=== PATIENT | male | born 1965 | race Caucasian/White ===

== ENCOUNTER 2016-09-20 08:25 | Day surgery (SDC) | payer OTHER ==
[2016-09-17 10:07] VITALS: BMI 26.6
[~2016-09-20 08:25] MED LIST: LACTATED RINGERS 1,000 ML IV SCH
[2016-09-20 08:39] VITALS: RESP 16; TEMP 98.7
[2016-09-20] MEDS ORDERED: LIDOCAINE 1% 20 ML VIAL (10MG/ML) FOR IV START INTRADERMA ONE (08:42)
[2016-09-20] MEDS ORDERED: BUPIVACAINE (PF) 0.5% 30 ML VIAL ONE (09:22)
[2016-09-20] MEDS ORDERED: MIDAZOLAM 2 MG/2 ML VIAL ONE (09:22)
[2016-09-20] MEDS ORDERED: TRIAMCINOLONE ACETONIDE 40 MG/ML 1 ML VIAL ONE (09:22)
[2016-09-20] MEDS ORDERED: fentaNYL (PF) 50 MCG/ML 2 ML AMP ONE (09:22)
--- NOTE | 2016-09-20 09:55 | P.PCN ---
Date of Procedure: 09/20/16 Anesthesia: MAC Surgeon: Dmitriy Trivedi Pathology: none sent Condition: stable Disposition: PACU Description of Procedure: PROCEDURE: Ultrasound guided right ilioinguinal nerve block. PREOPERATIVE DIAGNOSIS: Right ilioinguinal neuralgia. POSTOPERATIVE DIAGNOSIS: Right ilioinguinal neuralgia. ANESTHESIA: Local anesthesia + IV sedation. EBL: None. PROCEDURE INDICATION: History of pain in the right groin after inguinal hernia repair secondary to ilioinguinal neuralgia unresponsive to more conservative treatment measures, procedure #3 today. Ultrasound was used to verify needle position and maximize safety. PROCEDURE DESCRIPTION: The patient was seen and identified in the preoperative area. Risks, benefits, complications, and alternatives were discussed with the patient, including but not limited to bleeding, infection, nerve damage, incomplete pain relief, and allergic reactions to medications. The patient agreed to proceed with the procedure and signed the consent. IV was started, and vital signs were stable. Patient was taken to the OR and time out was completed to verify area of pain, . Using ultrasound the different abdominal wall layers, the external oblique, the internal oblique, and the transversus abdominus were identified. Subsquently, a 22-g 2 inch stimuplex needle was advanced under direct ultrasound guidance (in plane) to the layer between the internal oblique and the transversus abdominus which corresponds to the block site of the ilioinguinal nerve. Subsequently, and after negative aspiration of air and blood, 10 mL of a block solution containing Kenalog 80 mg and 8 mL of 0.25% preservative-free bupivacaine, was injected under direct ultrasound guidance. Needle was then removed intact. Skin was cleansed and bandages were applied. There were no complications. DISPOSITION / PLANS: The patient was placed in a supine position and transferred to the recovery area in a stable condition for observation and was discharged from the recovery room after meeting discharge criteria. Home discharge instructions given to the patient by the staff. The patient was reexamined prior to discharge and the patient already had relief, and there were no issues. The patient will schedule a follow up in clinic in approximately 4-6 weeks.
[2016-09-20 10:23] VITALS: BP 111/81; PULSE 82
[2016-09-20] MEDS ORDERED: IV FLUID CONTINUATION 1,000 ML IV ONE (10:25)
== END 2016-09-20 10:31 | disposition home or self-care (01) ==
LOC: ORPAIN 08:25
PROVIDERS: ATTEND Anesthesiology
DX: G89.29 Other chronic pain (principal); G58.8 Other specified mononeuropathies; Z79.82 Long term (current) use of aspirin; Z79.899 Other long term (current) drug therapy; Z88.1 Allergy status to other antibiotic agents
CPT/HCPCS: 64425; J2250; J3301; J3010

== ENCOUNTER → 2016-10-18 | Outpatient (CLI) | payer OTHER ==
[2016-10-18 13:17] LABS: ALT 49 U/L (21-72); AST 35 U/L (17-59); Cholesterol 135 mg/dL (<200); Creatine Kinase 89 U/L (55-170); HDL Cholesterol 41 mg/dL (40-60); Triglycerides 69 mg/dL (<150)
== END ==
LOC: LABWHC1 12:09
PROVIDERS: ATTEND Internal Medicine
DX: J44.9 Chronic obstructive pulmonary disease, unspecified (principal); N40.0 Benign prostatic hyperplasia without lower urinary tract symptoms; E78.5 Hyperlipidemia, unspecified; E55.9 Vitamin D deficiency, unspecified
CPT/HCPCS: 36415; 80061; 82306; 82550; 84450; 84460

== ENCOUNTER → 2016-10-18 | Outpatient (CLI) | payer OTHER ==
[2016-10-18 13:06] VITALS: BP 135/89; PULSE 84; RESP 18
--- NOTE | 2016-10-18 13:35 | P.PN ---
Progress Note - Text Patient returns for followup for chronic groin pain with radiation to right testicle after inguinal hernia surgery many years ago, now has undergone ilioinguinal NB x 3, each with XX days' worth of relief. Patient has had a history of ETOH abuse and now has right upper quadrant pain that he believes is caused by both alcohol and medications including meloxicam. Today, pt denies new-onset weakness, bowel/bladder incontinence, or any other signs or symptoms of cauda equina syndrome. There are no signs of acute intoxication, and no indications of medication diversion or overuse. In addition to above, 13-point review of systems is also negative for chest pain , shortness of breath, changes in vision, changes in hearing, new onset weakness , abdominal pain, diarrhea, extreme fatigue, malaise, fever, skin changes, homicidal or suicidal ideation, or bowel or bladder incontinence. Vital Signs: Reviewed in EMR Gen: WDWN, AAOx3, NAD HEENT: NCAT, EOMI, hearing grossly normal Pulm: resp unlabored Abd: soft, NT, ND Neck: supple, trachea midline Pelvis: tender to palpation over R groin and R testicle ROM in flexion lumbar spine: reduced ROM in extension lumbar spine: reduced Lumbar paravertebral tenderness: + Facet loading: + bilateral SI joint tenderness: + R side Booker's test: + R side Straight leg raise: + RLE at 35 degrees, negative LLE Neuro: CN II-XII grossly intact, muscle strength lower extremities PRESERVED Imaging: Reviewed in EMR Assessment: 1. ilioinguinal and genitofemoral neuralgia 2. chronic pain syndrome 3. chronic liver disease 4. lumbar radiculopathy Plan: 1. Explanation: Opioid and psychological risk scores were reviewed. Diagnoses , prognoses, and multiple treatment options including but not limited to physical therapy, interventional therapies, adjuvant medical therapies, narcotic medication therapies, and surgery were discussed with the patient and all questions were answered to the patient's satisfaction. 2. Opioid agreement: Patient will today sign narcotic agreement, and was orally counseled to not overuse, abuse, divert, or cell medications, and to take them as prescribed by only 1 healthcare provider. The patient was also counseled to store opioid medications in a safe and preferably locked location. Patient was also counseled against driving or operating heavy equipment while using narcotic medications and also to not use alcohol or any illicit or recreational drugs. The patient verbalized understanding that lack of compliance with any of the above and likely result in failure to renew narcotic prescriptions, possible discharge from the clinic, and possible legal ramifications thereafter if indicated. 3. Counseling: The patient was counseled extensively on BODY MASS INDEX, EXERCISE. Specifically, the patient was instructed regarding the importance of weight control, and exercise in the context of both chronic pain and overall health. 4. Procedures: right L5 + S1 transforaminal BEN 5. Consultations: None 6. Investigations: None 7. Medications: prescribed tramadol for patient to use rarely if needed (#30 with one refill for next 2-3 months) 8. Disposition: f/u for procedure as scheduled (consider interlaminar BEN if relief marginal) PQRS measures: 1-Patient's medications are documented in the chart. 2-Tobacco use is positive, counseling given 3-Patient has not had a pneumococcal vaccine. 4-Advanced care planning discussed, patient unable to give. 5-Opioid contract signed with the patient. 6-Pain positive, follow-up visit or procedure scheduled 7-Patient's blood pressure measured and documented, and patient will follow up with the primary care due to hypertension. 8-Patient's weight was measured, and body mass index ABOVE the normal limits, and counseling was done. Patient instructed to follow up with PCP. 9-Patient WAS identified as an unhealthy alcohol user (previous alcoholic), not currently drinking at this time.
== END | disposition home or self-care (01) ==
LOC: PNWHC3 12:48
PROVIDERS: ATTEND Anesthesiology
DX: G89.29 Other chronic pain (principal); M54.16 Radiculopathy, lumbar region; K76.9 Liver disease, unspecified; I10 Essential (primary) hypertension; R10.11 Right upper quadrant pain; F10.20 Alcohol dependence, uncomplicated; F17.200 Nicotine dependence, unspecified, uncomplicated; Z71.3 Dietary counseling and surveillance; Z79.891 Long term (current) use of opiate analgesic
CPT/HCPCS: 80307 ×2; G0463; 36415; 80061; 82306; 82550; 84450; 84460; 99211

== ENCOUNTER 2016-11-25 13:48 | Day surgery (SDC) | payer OTHER ==
[2016-11-25 14:39] VITALS: TEMP 98.7
[2016-11-25] MEDS ORDERED: LACTATED RINGERS 1,000 ML IV ONE (14:45)
[2016-11-25] MEDS ORDERED: LIDOCAINE 1% 20 ML VIAL (10MG/ML) FOR IV START INTRADERMA ONE (14:46)
[2016-11-25] MEDS ORDERED: IOHEXOL 180 MG/ML 1 ML ML ONE (15:53)
[2016-11-25] MEDS ORDERED: MIDAZOLAM 2 MG/2 ML VIAL ONE (15:53)
[2016-11-25] MEDS ORDERED: fentaNYL (PF) 50 MCG/ML 2 ML AMP ONE (15:53)
--- NOTE | 2016-11-25 16:22 | P.PCN ---
Date of Procedure: 11/25/16 Procedure(s) Performed: Procedure= lumbar epidural blood patch. at L5-S1 under fluoroscopy guidance Preoperative diagnosis= postdural puncture headache. Postoperative diagnoses= post dural puncture headache. Indication for the procedure= patient developed headache after right transforaminal epidural steroid injection-, the procedure was done on 2016 , patient continued to have severe headache and the headache persists in spite of conservative treatment, , there is no focal neurological deficit, no fever, no neck stiffness, headache worse with sitting and standing position, and improved with lying supine, for this reason patient is a good candidate for epidural blood patch. anesthesia= IV sedation with Versed 2 mg and fentanyl 100 g and local infiltration with lidocaine 1% 3 mL. Complications= none. Description of the procedure= patient identified risks and benefits of the procedure explained to the patient and patient agreed with proceeding, vital signs monitored during the procedure and IV sedation given to decrease anxiety, Back lumbar area prepped with chlorhexidine 3 times, then drape applied the local infiltration of the skin and subcutaneous tissue with lidocaine 1% 3 mL at L5-S1 interlaminar space then 18-gauge Tuohy needle advanced slowly at L5-S1 interlaminar space, There was positive loss of resistance to normal saline, no heme no paresthesia no cerebrospinal fluid,, the epidural location was confirmed with the fluoroscopy guidance at the Omnipaque injection 180 mg per mL of Omnipaque and 2 mL injected after negative aspiration , and it showed appropriate spread in the epidural space, then after negative aspiration for heme and no CSF and there was no paresthesia the RIght , antecubital area prepped with a chlorhexidine 3 times using 20-gauge Angiocath, and under sterile technique the 15 ML of the blood taken from the patient injected in the epidural space after negative aspiration for heme or CSF and there was no paresthesia, during the injection, then the needle removed intact the skin cleaned and the , bandage applied and patient discharged home in stable condition after discharge criteria met, and patient will follow up with the clinic in 2-4 weeks
[2016-11-25 16:27] VITALS: RESP 16
[2016-11-25] MEDS ORDERED: IV FLUID CONTINUATION 1,000 ML IV ONE (16:29)
[2016-11-25 16:52] VITALS: BP 117/82; PULSE 81
--- NOTE | 2016-11-26 08:35 | FL ---
Fluoroscopy HISTORY: Blood patch 1 second fluoroscopy time supplied to the referring clinician. 1 intraoperative C-arm image documents the procedure. See dictated report from anesthesia.
== END 2016-11-25 16:55 | disposition home or self-care (01) ==
LOC: ORPAIN 13:48
PROVIDERS: ATTEND Specialist
DX: G97.1 Other reaction to spinal and lumbar puncture (principal); Z88.1 Allergy status to other antibiotic agents; J44.9 Chronic obstructive pulmonary disease, unspecified
CPT/HCPCS: 62273; 99152; J2250; Q9965; J3010

== ENCOUNTER → 2016-11-29 | Outpatient (CLI) | payer OTHER ==
[2016-11-29 09:53] LABS: Bilirubin, Delta 0.3 mg/dL (0.0-0.2); Total Bilirubin 0.8 mg/dL (0.2-1.3); Total Protein 6.7 g/dL (6.3-8.2)
== END ==
LOC: LABWHC1 09:06
DX: R94.5 Abnormal results of liver function studies (principal)
CPT/HCPCS: 36415; 80076

== ENCOUNTER → 2016-12-15 | Outpatient (CLI) | payer OTHER ==
--- NOTE | 2016-12-15 10:15 | MR ---
MR thoracic spine and lumbar spine HISTORY: Thoracic spine pain, M 54.6, lumbago, M54.5 Multiplanar multisequence imaging obtained through the thoracic and lumbar spine No comparisons for thoracic spine MRI, prior MR lumbar spine 24 Dec 2014 for comparison Thoracic spine MRI: Thoracic vertebral bodies show preserved height, alignment, and bone marrow signa l. There is no significant central canal stenosis or foraminal encroachment. Disc spaces are maintain ed. No evident disc herniation. There is a mild thoracic scoliosis. Degenerative disc changes are not ed in the cervical spine. IMPRESSION: Mild thoracic scoliosis. No evident disc herniation or spinal stenosis in the thoracic sp ine. Degenerative disc disease noted incidentally in the cervical spine. Lumbar spine MRI: Levoscoliosis noted in the lumbar spine. Lumbar vertebral bodies show preserved hei ght and alignment. Mild multilevel spondylosis with endplate discogenic marrow signal change noted. M ild loss of disc height and signal present greatest at L5-S1 and L2-3. The conus is at L1-2 and shows an unremarkable. There is no significant central canal stenosis. L5-S1: Broad-based posterior disc bulge causes mild anterior mass effect on the thecal sac. Scoliotic curvature likely contributes with lateral extension of endplate disc complex to cause foraminal encr oachment left greater than right. There is facet arthropathy change. L4-5: Broad-based posterior disc bulge causes minimal anterior mass effect on the thecal sac, circumf erential extension of endplate disc complex causes some minimal left-sided foraminal encroachment. Mi ld facet arthropathy change. Hypertrophy of the ligamentum flavum causes some lateral recess encroach ment. L3-4: Facet arthropathy with hypertrophy of ligamentum flavum causes minimal lateral recess encroachm ent. No evident disc herniation. L2-3: Mild circumferential posterior disc bulge causes minimal anterior mass effect on the thecal sac . No foraminal encroachment. L1-2: Normal. IMPRESSION: Findings are similar to previous exam. Mild degenerative disc disease. Scoliosis.
== END | disposition home or self-care (01) ==
LOC: RADMRIMAIN 07:57
PROVIDERS: ATTEND Nurse Practitioner Acute Care
DX: M51.36 Other intervertebral disc degeneration, lumbar region (principal); M41.85 Other forms of scoliosis, thoracolumbar region; M54.6 Pain in thoracic spine
CPT/HCPCS: 72146; 72148

== ENCOUNTER 2016-12-23 09:49 | Day surgery (SDC) | payer OTHER ==
[2016-12-22 11:30] VITALS: BMI 25.8
[2016-12-23] MEDS ORDERED: LIDOCAINE 1% 20 ML VIAL (10MG/ML) FOR IV START INTRADERMA ONE (09:59)
[2016-12-23 10:08] VITALS: TEMP 98.3
[2016-12-23] MEDS ORDERED: IOHEXOL 180 MG/ML 1 ML ML ONE (10:41)
[2016-12-23] MEDS ORDERED: fentaNYL (PF) 50 MCG/ML 2 ML AMP ONE (10:41)
[2016-12-23] MEDS ORDERED: MIDAZOLAM 2 MG/2 ML VIAL ONE (10:41)
[2016-12-23] MEDS ORDERED: DEXAMETHASONE SOD PHOS (MDV) 100 MG/10 ML VIAL ONE (10:41)
--- NOTE | 2016-12-23 11:02 | P.PCN ---
Date of Procedure: 12/23/16 Procedure(s) Performed: PREOPERATIVE DIAGNOSIS: 1-Lumbar radiculopathy in right L5-S1 distribution 2- lumbar spondylosis with lumbar facet arthropathy without myelopathy POSTOPERATIVE DIAGNOSIS= same as preop diagnosis PROCEDURE 1. Transforaminal epidural steroid injection under fluoroscopic guidance at right L5-S1 level. 2. Lumbar epidurogram : ANESTHESIA: Local with 1% lidocaine; IV sedation with Versed 2 mg and fentanyle .100 mcg EBL: Minimal PROCEDURE INDICATION: The patient with low back pain and radiculopathy symptoms unresponsive to conservative treatment. PROCEDURE DESCRIPTION / TECHNIQUE: The patient was seen and identified in the preoperative area. Risks, benefits , complications, and alternatives were discussed with the patient. The patient agreed to proceed with the procedure and signed the consent. IV was started, and vital signs were stable. Patient was taken to the OR and time out was completed. The patient was placed in the prone position on procedure table and a pillow was placed under the abdomen to reduce lumbar lordosis. The lumbosacral area was prepped and draped in the usual sterile fashion. Critical pause was taken. Vital signs were closely monitored during the procedure. Conscious sedation was used during the procedure to decrease patients anxiety. Using oblique fluoroscopy, the chin of the ``Roman dog at rigt L5-S1 level was identified, and the skin and deeper tissues just below was localized with 1 % lidocaine. Subsequently, a 25 -gauge 3.5-inch spinal needle was advanced under a tunneled view fluoroscopic guidance just underneath the chin of the `` Roman dog at the right L5-S1 Under lateral fluoroscopy, the needle was then advanced to the posterior border of the Right L5-S1 interforaminal space. After negative aspiration of CSF and blood and with no paresthesias, 1 mL ofomnipaque-240 contrast dye was injected excellent epidurogram and outlining of the nerve root Subsequently, 3 mL of block solution containing 20 decadrone and 2 mL of Lidocaine 1% was injected. Needle was removed . At the end of the procedure, skin was cleansed, and bandages were applied. COMPLICATIONS: None COMMENTS: DISPOSITION / PLANS: The patient was placed in a supine position and transferred to the recovery area in a stable condition for observation. There was no evidence of lower extremity motor or sensory deficit after the procedure. Patient was discharged from the recovery room after meeting discharge criteria. Home discharge instructions were given to the patient by the staff. The patient was reexamined prior to discharge. Patients had new MRI of the lumbar and thoracic spine, he will follow-up visit in the pain a few weeks and we will discuss with the results of the MRI with him
[2016-12-23] MEDS ORDERED: IV FLUID CONTINUATION 475 ML IV ONE (11:14)
[2016-12-23 11:29] VITALS: BP 1116/76; PULSE 86; RESP 16
--- NOTE | 2016-12-23 12:26 | FL ---
EXAMINATION TYPE: FL guided pain mgmt statistic DATE OF EXAM: 12/23/2016 10:59 AM HISTORY: Flouroscopy time 3 seconds of fluoroscopy provided. IMPRESSION: 1. Fluoroscopy time.
== END 2016-12-23 11:17 | disposition home or self-care (01) ==
LOC: ORPAIN 09:49
PROVIDERS: ATTEND Specialist
DX: M47.26 Other spondylosis with radiculopathy, lumbar region (principal); M46.96 Unspecified inflammatory spondylopathy, lumbar region; Z88.1 Allergy status to other antibiotic agents
CPT/HCPCS: 64483; J2250; Q9965; J3010; J1100

== ENCOUNTER → 2017-02-16 | Outpatient (CLI) | payer OTHER ==
[2017-02-16 14:39] VITALS: BP 109/75; PULSE 94; RESP 16
--- NOTE | 2017-02-16 14:55 | P.PN ---
Progress Note - Text Patient returns for followup for chronic back and leg pain s/p TFESI x 3. Patient has had a history of ETOH abuse and now has right upper quadrant pain that he believes is caused by both alcohol and medications including meloxicam. Today, pt denies new-onset weakness, bowel/bladder incontinence, or any other signs or symptoms of cauda equina syndrome. There are no signs of acute intoxication, and no indications of medication diversion or overuse. In addition to above, 13-point review of systems is also negative for chest pain , shortness of breath, changes in vision, changes in hearing, new onset weakness , abdominal pain, diarrhea, extreme fatigue, malaise, fever, skin changes, homicidal or suicidal ideation, or bowel or bladder incontinence. Vital Signs: Reviewed in EMR Gen: WDWN, AAOx3, NAD HEENT: NCAT, EOMI, hearing grossly normal Pulm: resp unlabored Abd: soft, NT, ND Neck: supple, trachea midline ROM in flexion lumbar spine: reduced ROM in extension lumbar spine: reduced Lumbar paravertebral tenderness: + Facet loading: + bilateral SI joint tenderness: + R side Booker's test: + R side Straight leg raise: +RLE at 15 degrees, negative LLE Neuro: CN II-XII grossly intact, muscle strength lower extremities PRESERVED Imaging: Reviewed in EMR Assessment: 1. ilioinguinal and genitofemoral neuralgia 2. chronic pain syndrome 3. chronic liver disease 4. lumbar radiculopathy Plan: 1. Explanation: Opioid and psychological risk scores were reviewed. Diagnoses , prognoses, and multiple treatment options including but not limited to physical therapy, interventional therapies, adjuvant medical therapies, narcotic medication therapies, and surgery were discussed with the patient and all questions were answered to the patient's satisfaction. 2. Opioid agreement: Patient will today sign narcotic agreement, and was orally counseled to not overuse, abuse, divert, or cell medications, and to take them as prescribed by only 1 healthcare provider. The patient was also counseled to store opioid medications in a safe and preferably locked location. Patient was also counseled against driving or operating heavy equipment while using narcotic medications and also to not use alcohol or any illicit or recreational drugs. The patient verbalized understanding that lack of compliance with any of the above and likely result in failure to renew narcotic prescriptions, possible discharge from the clinic, and possible legal ramifications thereafter if indicated. 3. Counseling: The patient was counseled extensively on BODY MASS INDEX, EXERCISE. Specifically, the patient was instructed regarding the importance of weight control, and exercise in the context of both chronic pain and overall health. 4. Procedures: none 5. Consultations: None 6. Investigations: None 7. Medications: prescribed tramadol for patient to use rarely if needed (#30 with two refills) 8. Disposition: f/u as needed; patient to see Dr. Baires PQRS measures: 1-Patient's medications are documented in the chart. 2-Tobacco use is positive, counseling given 3-Patient has not had a pneumococcal vaccine. 4-Advanced care planning discussed, patient unable to give. 5-Opioid contract signed with the patient. 6-Pain positive, follow-up visit or procedure scheduled 7-Patient's blood pressure measured and documented, and patient will follow up with the primary care due to hypertension. 8-Patient's weight was measured, and body mass index ABOVE the normal limits, and counseling was done. Patient instructed to follow up with PCP. 9-Patient WAS identified as an unhealthy alcohol user (previous alcoholic), not currently drinking at this time.
== END | disposition home or self-care (01) ==
LOC: PNWHC3 13:41
PROVIDERS: ATTEND Anesthesiology
DX: M54.16 Radiculopathy, lumbar region (principal); G89.4 Chronic pain syndrome; K76.9 Liver disease, unspecified
CPT/HCPCS: 99211

== ENCOUNTER → 2017-05-19 | Outpatient (CLI) | payer OTHER ==
[2017-05-19 12:50] VITALS: BP 123/80; PULSE 87; RESP 16; TEMP 98.2
--- NOTE | 2017-05-19 15:42 | P.CONS ---
History of Present Illness - Reason for Consult Consult date: 05/19/17 - History of Present Illness This is follow This Patient with a History of Right Groin Pain , they) and a right ilioinguinal and right genitofemoral neuralgia, and lumbar radiculopathy, done in going on and genitofemoral nerve block without any significant benefit and we have done right-sided L5-S1 transforaminal epidural steroid injections 2 without any benefit, he continued to have severe right groin pain at the location of the right inguinal nerve and genitofemoral nerve, pain is constant and associated with numbness and tingling sensation, he had no motor or sensory deficits Past Medical History Past Medical History: COPD, Hyperlipidemia Additional Past Medical History / Comment(s): "ELEVATED LIVER ENZYMES" History of Any Multi-Drug Resistant Organisms: None Reported Past Surgical History: Hernia Repair, Orthopedic Surgery, Tonsillectomy Additional Past Surgical History / Comment(s): hand surgery, colonoscopy, Past Anesthesia/Blood Transfusion Reactions: No Reported Reaction Past Psychological History: Depression Smoking Status: Current every day smoker Past Alcohol Use History: None Reported Additional Past Alcohol Use History / Comment(s): STARTED SMOKING AT AGE 18, SMOKES 1/2 PPD Past Drug Use History: None Reported - Past Family History Mother Family Medical History: No Reported History Medications and Allergies Home Medications Medication Instructions Recorded Confirmed Type Atorvastatin [Lipitor] 10 mg PO HS 07/22/16 05/19/17 History Gabapentin [Neurontin] 300 mg PO TID 09/17/16 05/19/17 History Cholecalciferol [Vitamin D3] 2,000 unit PO DAILY 11/17/16 05/19/17 History Oxymetazoline 0.05% Nasl [place] 1 - 2 spray EA NOSTRIL DAILY PRN 11/17/16 History [Afrin 0.05% Nasal [place]] traMADol HCL [Ultram] 50 mg PO BID PRN #60 tab 02/16/17 05/19/17 Rx Amitriptyline HCl 1 tab PO DAILY 05/19/17 05/19/17 History Allergies Allergy/AdvReac Type Severity Reaction Status Date / Time ciprofloxacin AdvReac Abdominal Verified 05/19/17 12:42 Pain Physical Exam Vitals: Vital Signs Temp Pulse Resp BP Pulse Ox 05/19/17 12:44 98.2 F 87 16 123/80 96 Intake and Output 05/19/17 05/19/17 05/19/17 06:59 14:59 22:59 Other: Weight 74.843 kg Patient Weight 05/20/17 06:59 Weight 74.843 kg Physical Examinations : 1-Constitutiona : Cooperative , not in acute distress . 2-HEENT : nech ; supple , no Lymphadenopathy , normal thyroid size . eyes : no ptosis , no icterus, no photophobia . ENT : normal of hearing , normal oropharynx , no Thrush . 3- Respiratory : Chest clear to auscultations Bilaterally , no wheezing , no Rhonchi . 4- Cardiovascular : regular rate and rhythem , S1 , S2 , no S3 , no S4. 5- Gastrointestinal : abdomen soft no tenderness , bowel sounds positive all four quadrents , no organomegally . 6- Genitourinary : Defferred . 7- neurologic : Cranial nerve II to XII intact , no focal neurological deffecit . 8-psychatric : alert , oriented X 3 , appropriate affect , intact judgment and insight . 9-Lymphatic : no Lymphadenopathy . 10- musculoskeltal : . , Lumber spine = normal moter stegnth lower extremities ,thigh and legs .5/5 deep tendon reflexes : normal Knee Jerk , normal ankle Jerk . positive lumber facet Loading Test strait leg raising test positive at 60 degree , RT Fabere test positive RT Assessment and Plan Plan: Assessment and plan=1-R right ileo-inguinal and right genitofemoral neuralgia patient continued to have pain after ilioinguinal and genitofemoral nerve block. 2- right lumbar radiculopathy, patient continued to have low back pain and right groin pain after L5-S1 transforaminal epidural steroid injection , patient had EMG done at Dr. Batres's office ( neurologist ) , I don't have the report and according to the patient and the EMG showed that he had some nerve damage in the groin area, the patient should continue on his Neurontin as prescribed by his neurologist Dr. Summers and patient could benefit from increasing the dose of Ultram from 50 mg twice a day to 50 mg every 6 hours , also patient could benefit from the TENS unit prescription for TENS unit trial given, patient will follow up in 1-2 months Time with Patient: Less than 30
== END | disposition home or self-care (01) ==
LOC: PNWHC3 12:10
PROVIDERS: ATTEND Specialist
DX: M54.16 Radiculopathy, lumbar region (principal); J44.9 Chronic obstructive pulmonary disease, unspecified; E78.5 Hyperlipidemia, unspecified; F17.200 Nicotine dependence, unspecified, uncomplicated; Z88.1 Allergy status to other antibiotic agents; Z79.899 Other long term (current) drug therapy
CPT/HCPCS: 99211

== ENCOUNTER → 2017-07-14 | Outpatient (CLI) | payer OTHER ==
[2017-07-14 13:54] VITALS: BP 123/80; PULSE 99; RESP 16
--- NOTE | 2017-07-14 14:27 | P.PN ---
Subjective Progress Note Date: 07/14/17 This is a 51 years old male with a chronic history of severe right groin pain, diagnosed with a right ilioinguinal neuralgia right genitofemoral neuralgia, he continued to have severe pain after the genitofemoral nerve block, and we have done, right-sided transforaminal epidural steroid injection patient had no benefit from it, he continued to use Ultram 50 mg every 6 hours, Neurontin 300 mg 3 times a day , and denies any side effect of the medication he denies any excessive drowsiness and sleepiness, we ordered TENS unit trial last visit , and he will start using the TENS units very soon Objective - Vital Signs Vital signs: Vital Signs Temp Pulse 99 07/14/17 13:42 Resp 16 07/14/17 13:42 BP 123/80 07/14/17 13:42 Pulse Ox 97 07/14/17 13:42 Intake & Output 07/13/17 07/14/17 07/14/17 18:59 06:59 18:59 Weight 77.111 kg - Exam Physical Examinations : 1-Constitutiona : Cooperative , not in acute distress . 2-HEENT : nech ; supple , no Lymphadenopathy , normal thyroid size . eyes : no ptosis , no icterus, no photophobia . ENT : normal of hearing , normal oropharynx , no Thrush . 3- Respiratory : Chest clear to auscultations Bilaterally , no wheezing , no Rhonchi . 4- Cardiovascular : regular rate and rhythem , S1 , S2 , no S3 , no S4. 5- Gastrointestinal : abdomen soft no tenderness , bowel sounds positive all four quadrents , no organomegally . Allodynia in the right groin area 6- Genitourinary : Defferred . 7- neurologic : Cranial nerve II to XII intact , no focal neurological deffecit . 8-psychatric : alert , oriented X 3 , appropriate affect , intact judgment and insight . 9-Lymphatic : no Lymphadenopathy . 10- musculoskeltal : , Lumber spine = normal moter stegnth lower extremities ,thigh and legs .12/17 Assessment and Plan Assessment: Assessment and plan= chronic right groin pain secondary to right ilioinguinal/genitofemoral neuralgia versus right lumbar radiculopathy all the interventional pain procedure and did not help to improve the pain chronic and current use of high-risk medication (opioids) Patient denies any side effects of the current pain medication and the current treatment/medication ML and the patient to do activity of daily living , Diagnoses, prognosis, treatment options, including but not limited to physical therapy, medication management, interventional therapies, and surgery, were discussed with the patient All the questions answered Patient signed the narcotic agreement, and he was orally counseled, not to overuse, not to abuse, not to Divert , not tp sell pain medication, and to take it as prescribed only, Patient was counseled not to drive or operate heavy equipment while using narcotic medication, and advised not to use alcohol or any Illicit drugs while using the narcotis, the patient's verbalized understanding that lack of compliance with any of the above instructions and will likely to cause discharge from the pain service, not to renew his narcotic prescriptions Medication managements= patient will be given prescription refills for 1-Ultram 50 mg every 6 hours dispensed 120 with 2 refills 2-Neurontin 300 mg 3 times a day he is getting prescriptions from his primary care Interventional pain management=none Refferal = physical therapy for evaluation and treatment , patient will start using a TENS unit LINDA Follow-up= 3 months , Time with Patient: Less than 30
== END | disposition home or self-care (01) ==
LOC: PNWHC3 12:16
PROVIDERS: ATTEND Specialist
DX: R10.9 Unspecified abdominal pain (principal); G89.29 Other chronic pain
CPT/HCPCS: 99211

== ENCOUNTER → 2017-09-08 | Outpatient (CLI) | payer OTHER ==
[2017-09-08 13:47] VITALS: BP 111/73; PULSE 92; RESP 16
--- NOTE | 2017-09-08 14:54 | P.PN ---
Progress Note - Text Progress Note Date: 09/08/17 Patient returns for followup for chronic back and leg pain and groin pain, s/p numerous IINBs and TFESIs at L5 level without relief. Patient continues on tramadol with relief. Today, pt denies new-onset weakness, bowel/bladder incontinence, or any other signs or symptoms of cauda equina syndrome. There are no signs of acute intoxication, and no indications of medication diversion or overuse. In addition to above, 13-point review of systems is also negative for chest pain , shortness of breath, changes in vision, changes in hearing, new onset weakness , abdominal pain, diarrhea, extreme fatigue, malaise, fever, skin changes, homicidal or suicidal ideation, or bowel or bladder incontinence. Vital Signs: Reviewed in EMR Gen: WDWN, AAOx3, NAD HEENT: NCAT, EOMI, hearing grossly normal Pulm: resp unlabored Abd: soft, NT, ND Neck: supple, trachea midline ROM in flexion lumbar spine: reduced ROM in extension lumbar spine: reduced Lumbar paravertebral tenderness: + Facet loading: + bilateral SI joint tenderness: + R side Booker's test: + R side Straight leg raise: +RLE at 15 degrees, negative LLE Neuro: CN II-XII grossly intact, muscle strength lower extremities PRESERVED Imaging: Reviewed in EMR Assessment: 1. ilioinguinal and genitofemoral neuralgia 2. chronic pain syndrome 3. chronic liver disease 4. lumbar radiculopathy Plan: 1. Explanation: Opioid and psychological risk scores were reviewed. Diagnoses , prognoses, and multiple treatment options including but not limited to physical therapy, interventional therapies, adjuvant medical therapies, narcotic medication therapies, and surgery were discussed with the patient and all questions were answered to the patient's satisfaction. 2. Opioid agreement: Patient has previously signed narcotic agreement, and was orally counseled to not overuse, abuse, divert, or cell medications, and to take them as prescribed by only 1 healthcare provider. The patient was also counseled to store opioid medications in a safe and preferably locked location. Patient was also counseled against driving or operating heavy equipment while using narcotic medications and also to not use alcohol or any illicit or recreational drugs. The patient verbalized understanding that lack of compliance with any of the above and likely result in failure to renew narcotic prescriptions, possible discharge from the clinic, and possible legal ramifications thereafter if indicated. 3. Counseling: The patient was counseled extensively on BODY MASS INDEX, EXERCISE. Specifically, the patient was instructed regarding the importance of weight control, and exercise in the context of both chronic pain and overall health. 4. Procedures: L2-L3 vs. L1-L2 interlaminar BEN series (patient would like to try this to help with his inguinal symptoms) 5. Consultations: None 6. Investigations: None 7. Medications: tramadol 50 mg #120 with two refills 8. Disposition: f/u for procedure as scheduled PQRS measures: 1-Patient's medications are documented in the chart. 2-Tobacco use is positive, counseling given 3-Patient has not had a pneumococcal vaccine. 4-Advanced care planning discussed, patient unable to give. 5-Opioid contract signed with the patient. 6-Pain positive, follow-up visit or procedure scheduled 7-Patient's blood pressure measured and documented, and patient will follow up with the primary care due to hypertension. 8-Patient's weight was measured, and body mass index ABOVE the normal limits, and counseling was done. Patient instructed to follow up with PCP. 9-Patient WAS identified as an unhealthy alcohol user (previous alcoholic), not currently drinking at this time.
== END | disposition home or self-care (01) ==
LOC: PNWHC3 12:25
PROVIDERS: ATTEND Anesthesiology
DX: G89.4 Chronic pain syndrome (principal); M54.16 Radiculopathy, lumbar region; K76.9 Liver disease, unspecified; Z79.891 Long term (current) use of opiate analgesic
CPT/HCPCS: 99211

== ENCOUNTER → 2018-10-14 | Outpatient (CLI) | payer OTHER ==
[2018-10-14 10:29] LABS: Basophils # (A) 0.1 k/uL (0-0.2); Basophils % (A) 1 %; Eosinophils # (A) 0.1 k/uL (0-0.7); Eosinophils % (A) 1 %; HCT 47.4 % (39.0-53.0); HGB 15.7 gm/dL (13.0-17.5); Lymphocytes # (A) 1.4 k/uL (1.0-4.8); Lymphocytes % (A) 15 %; MCH 29.5 pg (25.0-35.0); MCHC 33.1 g/dL (31.0-37.0); MCV 89.2 fL (80.0-100.0); Mean Platelet Volume 7.5; Monocytes # (A) 0.6 k/uL (0-1.0); Monocytes % (A) 7 %; Neutrophils % (A) 75 %; Platelet Count 243 k/uL (150-450); RBC 5.32 m/uL (4.30-5.90); RDW 12.7 % (11.5-15.5); WBC 9.4 k/uL (3.8-10.6)
[2018-10-14 13:09] LABS: Erythrocyte Sedimentation Rate 2 mm/hr (0-15)
[2018-10-14 17:43] LABS: ALT 51 U/L (10-49); AST 42 U/L (14-35); Albumin/Globulin Ratio 2.32 (1.60-3.17); Alkaline Phosphatase 56 U/L (41-126); C Reactive Protein <0.4 mg/dL (0.0-0.8); Calcium 9.6 mg/dL (8.7-10.3); Carbon Dioxide 28.5 mmol/L (21.6-31.8); Chloride 106 mmol/L (96-109); Cholesterol 180 mg/dL (0-200); Creatine Kinase 113 U/L (35-257); Globulin 1.9 g/dL (1.6-3.3); Glucose 96 mg/dL (70-110); LDL Cholesterol,Calculated 124.2 mg/dL (0.0-131.0); Potassium 4.7 mmol/L (3.5-5.5); Sodium 138 mmol/L (135-145); Total Bilirubin 0.6 mg/dL (0.3-1.2); Total Protein 6.3 g/dL (6.2-8.2)
== END | disposition home or self-care (01) ==
LOC: LABWHC1 09:29
PROVIDERS: ATTEND Internal Medicine
DX: E78.5 Hyperlipidemia, unspecified (principal); I10 Essential (primary) hypertension; E55.9 Vitamin D deficiency, unspecified; J44.9 Chronic obstructive pulmonary disease, unspecified; E87.8 Other disorders of electrolyte and fluid balance, not elsewhere classified; D64.9 Anemia, unspecified
CPT/HCPCS: 36415; 80053; 80061; 82306; 82550; 82977; 84153; 84443; 85025; 85652; 86140